=== PATIENT | female | born 1980 | race Caucasian/White ===

== ENCOUNTER 2016-10-03 23:20 | Emergency (ER) | payer OTHER ==
--- NOTE | ~2016-10-03 | CT4 ---
[facility] A Service of [facility] RADIOLOGY TEXT RESULTS PATIENT: JAVI VILLANUEVA LOCATION: [facility] : [birth year] UNIT #: [id number] AGE: [address]: Kolton Odonnell MD SEX: F ORDER DR: [id number] [facility] [address] [place], [place] [address] [id number] E MR#: [id number] #: [id number] NAME: JAVI VILLANUEVA : 1980 SEX: F STUDY DATE/TIME: 10/04/2016 1:51 UNIT: [facility] ROOM: STUDY DESCRIPTION: CT Abd and Pelv Wo Cont Attending Physician: Er Doctor Ruben Ordering Physician: Kolton Odonnell M.D. Primary Care Physician: Chetan Doty M.D. MEDICAL IMAGING REPORT This report is preliminary unless electronic signature is present EXAM CT abdomen and pelvis without IV contrast COMPARISON None. INDICATION 36-year-old female with lower abdominal pain for [address] examination was performed with one or more of the following radiation dose reduction techniques: automatic exposure control, adjustment of mA and/or kV according to patient size, and iterative reconstruction. FINDINGS Axial CT imaging of the abdomen and pelvis was performed without IV contrast. Lack of IV contrast limits evaluation of adenopathy, vasculature and viscera. Tiny fat-containing umbilical hernia. Multilevel mild degenerative facet change of the lower lumbar spine. No acute fractures or suspicious osseous lesions. Dependent atelectasis both lower lobes. Mild paraseptal emphysema seen in the right middle lobe. Minimal atelectasis in the lingula. Prior cholecystectomy. Unenhanced liver, pancreas, spleen, adrenal glands and kidneys are within normal limits. There is apparent persistent lobulation of both kidneys, left greater than right. No hydronephrosis or hydroureter. No ureteral calculi. Urinary bladder and uterus are grossly unremarkable. No evidence of adnexal mass. There are mildly prominent symmetric bilateral parametrial veins. There is trace free fluid in the pelvis, possibly physiologic. No evidence of bowel obstruction. The [facility] A Service of [facility] RADIOLOGY TEXT RESULTS PATIENT: JAVI VILLANUEVA LOCATION: [facility] #: [id number] : [birth year] UNIT #: [id number] AGE: [address]: Kolton Odonnell MD SEX: F ORDER DR: appendix is normal. No pneumoperitoneum. Normal caliber of the abdominal aorta. No adenopathy. IMPRESSION 1. No acute abnormality within the abdomen, pelvis or imaged lower chest. 2. Mild paraseptal emphysema seen in the right middle lobe. 3. Prior cholecystectomy. 4. Trace free fluid in the pelvis, favored to be physiologic. Dictated by... Gabo Love M.D. THIS IS AN ELECTRONICALLY VERIFIED REPORT Gabo Love M.D. at 10/05/2016 8:42 AM MANASA/rusty TD: 10/04/2016 08:03 JOB #: [id number] MEDICAL IMAGING REPORT COPY
[~2016-10-03 23:20] MED LIST: BACTRIM DS TABL1 TA1 PO; DARVOCET-N 1001 TA1 PO; FLEXERIL10 MG PO; IBUPROFEN PO; MEDROL DOSEPAK4 MG PO; NAPROSYN500 MG PO; NORCO 5/325 TAB1 TAB PO; PYRIDIUM PO; ULTRAM PO; ZYRTEC-D T1 TAB.SR1 PO
[2016-10-04 00:38] LABS: URINE SOURCE CLEAN CATCH
[2016-10-04 00:41] LABS: BASOPHIL% 0.4 % (0-2.5); EOSINOPHIL# 0.1 X10e3 (0-0.7); EOSINOPHIL% 0.9 % (0.0-7.0); HEMATOCRIT 37.1 % (35.0-45.0); HEMOGLOBIN 12.5 gm/dL (12.0-16.0); LYMPHOCYTE# 3.5 X10e3 (1.0-3.5); LYMPHOCYTE% 32.6 % (17.0-45.0); MEAN CELL VOLUME 91.1 FL (83-96); MEAN CORPUSCULAR HEMOGLOBIN 30.7 PG (28-34); MEAN CORPUSCULAR HGB CONC 33.7 g/dL (30-36); MEAN PLATELET VOLUME 7.9 FL (6.5-11.5); MONOCYTE# 0.7 X10e3 (0-1.0); MONOCYTE% 6.2 % (3.0-12.0); NEUTROPHIL# 6.5 X10e3 (1.5-7.1); NEUTROPHIL% 59.9 % (40-75); PLATELET COUNT 246 X10e3 (140-420); RED BLOOD COUNT 4.07 X10e (3.90-5.30); RED CELL DISTRIBUTION WIDTH 13.4 % (11.0-15.5); WHITE BLOOD COUNT 10.9 X10e3 (4.0-10.5)
[2016-10-04 00:42] LABS: DIFF IND NO
[2016-10-04 00:44] LABS: URINE APPEARANCE CLEAR; URINE BILIRUBIN NEG (NEG); URINE BLOOD NEG (NEG); URINE COLOR YELLOW; URINE GLUCOSE NEG (NEG); URINE KETONE NEG (NEG); URINE LEUKOCYTE ESTERASE NEG (NEG); URINE NITRATE NEG (NEG); URINE PROTEIN NEG (NEG); URINE SPECIFIC GRAVITY 1.019 (1.003-1.035); URINE UROBILINOGEN 0.2 MG/DL (NEG)
[2016-10-04 00:49] LABS: CULTURE INDICATED? NO
[2016-10-04 01:05] LABS: ALBUMIN SERUM 3.9 g/dL (3.5-5.0); ALKALINE PHOSPHATASE 27 U/L (32-92); ALT (SGPT) 22 U/L (10-40); AST (SGOT) 18 U/L (10-42); BILIRUBIN, DIRECT 0.1 mg/dL (0.0-0.2); BILIRUBIN,INDIRECT 0.5 mg/dL (0.0-0.9); BILIRUBIN,TOTAL 0.6 mg/dL (0.2-2.0); BLOOD UREA NITROGEN 13 mg/dL (9-23); BUN/CREATININE RATIO 14.44; CALCIUM SERUM 9.6 mg/dL (8.4-10.2); CARBON DIOXIDE 29 mmol/L (22-31); CHLORIDE 105 mmol/L (100-111); CREATININE SERUM 0.9 mg/dL (0.6-1.4); GLOM FILT RATE Estimated ABOVE60 mL/min (>60); GLUCOSE FASTING 109 mg/dL (70-110); LIPASE 29 U/L (22-51); POTASSIUM 3.5 mmol/L (3.5-5.1); SODIUM 141 mmol/L (135-145)
[2016-10-09 18:15] LABS: CHLAMYDIA TRACH Not Detected (Not Detected); N GONOR Not Detected (Not Detected)
== END 2016-10-04 03:45 | disposition home or self-care (01) ==
LOC: CED 23:20
PROVIDERS: Emergency Medicine
DX: R10.30 Lower abdominal pain, unspecified (principal); R30.0 Dysuria
CPT/HCPCS: 36415; 74176; 80048; 80076; 81003; 83690; 84703; 85025; 87491; 87591; 87808; 87905; 99284

== ENCOUNTER 2017-01-06 13:43 | Emergency (ER) | payer OTHER ==
--- NOTE | ~2017-01-06 | CR127 ---
[facility] A Service of [facility] RADIOLOGY TEXT RESULTS PATIENT: JAVI VILLANUEVA LOCATION: [facility] : 78 UNIT #: [id number] AGE: [address]: Doris Rocha SEX: F ORDER DR: [id number] [facility] [address] [place] [address] [place], [place] [address] [id number] E MR#: [id number] #: [id number] NAME: JAVI VILLANUEVA : 1980 SEX: F STUDY DATE/TIME: 01/06/2017 14:04 UNIT: [facility] ROOM: STUDY DESCRIPTION: CR Foot Complete Min 3 View Rt Attending Physician: Doris Rocha Pa-C Ordering Physician: Ed Sony Miranda M.D. Primary Care Physician: Chetan Doty M.D. MEDICAL IMAGING REPORT This report is preliminary unless electronic signature is present EXAM Right foot, 3 views, 01/06/17, 1404 hours. CLINICAL HISTORY 36-year-old who tripped and fell today complaining of pain across top of foot since fall. FINDINGS AP, oblique and lateral views demonstrate no fracture, dislocation or degenerative change. IMPRESSION Negative right foot. Dictated by... Teresa Covington M.D. THIS IS AN ELECTRONICALLY VERIFIED REPORT Teresa Covington M.D. at 01/07/2017 6:58 PM Jose TD: 01/06/2017 20:33 JOB #: [id number] MEDICAL IMAGING REPORT Page 1 of 1 COPY
== END 2017-01-06 15:15 | disposition home or self-care (01) ==
LOC: CED 13:43 → CFTX 13:43
DX: S90.31XA Contusion of right foot, initial encounter (principal); X58.XXXA Exposure to other specified factors, initial encounter; Y92.098 Other place in other non-institutional residence as the place of occurrence of the external cause; E07.9 Disorder of thyroid, unspecified; H91.90 Unspecified hearing loss, unspecified ear; W22.8XXA Striking against or struck by other objects, initial encounter; Y93.11 Activity, swimming; Y92.009 Unspecified place in unspecified non-institutional (private) residence as the place of occurrence of the external cause
CPT/HCPCS: 73630; 99283